=== PATIENT | male | born 1995 ===

== ENCOUNTER 2020-05-12 22:23 | Emergency (ER) | payer SELFPAY ==
--- NOTE | 2020-05-12 22:15 | RT.EKG_ITS ---
APPROVED REPORT Exam: Resting ECG Patient Location: E HR:115 bpm ECG Measurements Heart Rate 115 AXIS [place] 158 P 81 QRSd 90 QRS 84 QT 332 T 77 QTc 459 Conclusion Sinus tachycardia...rate> 99 Right atrial enlargement...P>0.25mV 2 lds or<-0.24mV aVR/aVL Normal [place] I have reviewed and interpreted ECG and agree with software generated interpretation.
[2020-05-12 22:27] VITALS: BP 159/89; PULSE 134; RESP 30; TEMP 36.2; O2SAT 80
== END 2020-05-12 23:00 ==
LOC: ER 22:30
PROVIDERS: Emergency Provider Emergency Medicine
DX: R69 Illness, unspecified (principal)
CPT/HCPCS: 93005; 93010